=== PATIENT | male | born 1995 | race Caucasian/White ===

== ENCOUNTER 2024-08-17 19:34 | Emergency (ER) | payer SELFPAY ==
--- NOTE | ~2024-08-17 | XR_ITS ---
CLINICAL HISTORY: FB sensation 2 views soft tissue neck Comparison: None Findings No acute fractures or dislocation. Normal epiglottis. No prevertebral soft tissue swelling. No radiopaque foreign body. IMPRESSION: No acute findings This document has been electronically signed by: Mee Lemon MD on 08/17/2024 22:18:22
[2024-08-17 20:33] VITALS: BP 125/78; PULSE 79; RESP 16; TEMP 36.8; O2SAT 97
--- NOTE | 2024-08-17 20:34 | ED.CHESTPAIN ---
HPI - Chest Pain General Chief Complaint: Skin/Abscess/Foreign Body Stated Complaint: ? bone stuck in throat Time Seen by Provider: 08/17/24 21:48 Source: patient Mode of arrival: ambulatory Limitations: no limitations History of Present Illness ED Provider: GRAYSON HPI narrative: 28 yo male with no sig PMH here after eating a reheated piece of chicken he thought when he swallowed maybe there was a bone and it was stuck in his throat afterwards it hurt and now when he swallows it hurts. No bleeding reported. He is also asking for his thyroid to be checked because he is sleeping more. He denies any change in voice, fever. MD complaint: other (FB?) Onset (ago): day(s) (1) Prior episodes: No Onset: after eating Pain location: other (near his [place]) Pain radiation: none Severity: mild Quality: sharp Relieving factors: nothing Exacerbating factors: eating Context: other Treatment prior to arrival: none Related Data Allergies Allergy/AdvReac Type Severity Reaction Status Date / Time No Known Allergies Allergy Verified 08/17/24 20:35 Review of Systems Review of Systems: Constitutional : No Fever, No Chills, No Fatigue ENT/Mouth : pos sore throat, No Rhinorrhea Eyes: No Eye Pain, No Swelling, No Redness Cardiovascular : No Chest Pain, No SOB, No Dyspnea on Exertion Respiratory : No Cough, No Sputum Gastrointestinal : No Nausea, No Vomiting, No Diarrhea, No abdominal Pain Genitourinary : No Dysuria, No Urinary Frequency, No Hematuria, Musculoskeletal : No joint pain, No Myalgias, No Joint Swelling Skin : No Skin Lesions, No rash Neuro : No Weakness, No Numbness, No Dizziness, no Headache All other systems reviewed and are negative REPLACED BY [facility] Past Medical History Attestation statement: The following information was validated with the patient. Medical History (Updated 08/18/24 @ 00:00 by Jaswinder Romano) No pertinent past medical history Social History Social History (Updated 08/17/24 @ 22:40 by Esme Sanders DO) Patient Tobacco Use Status: Never used Tobacco Physical Exam Vital Signs: Vital Signs: Last Vital Signs Temp 98.4 F 08/17/24 22:47 Pulse 78 08/17/24 22:47 Resp 20 08/17/24 22:47 BP 118/81 08/17/24 22:47 Pulse Ox 98 08/17/24 22:47 O2 Del Method Room Air 08/17/24 22:47 BMI result Body Mass Index 30.0 Appearance: Alert. Oriented X3. No acute distress. Eyes: Pupils equal, round and reactive to light. ENT: Pharynx normal. Neck: Normal inspection. Neck supple. CVS: Normal heart rate and rhythm. Pulses normal. Respiratory: No respiratory distress. Breath sounds normal. Abdomen: Soft and non-tender. Skin: Skin warm and dry. Normal skin color. Normal skin turgor. Extremities: No lower extremity edema. No calf ttp Neuro: Oriented X 3. No motor deficit. No sensory deficit. CN2-12 intact Course Course Course Narrative: RME: 28 yold male presents to the ED for possible chicken stuck in throat. patient was eating meat in 30 minutes later and felt like it got stuck in his throat. Patient denies any drooling or change in voice. Patient denies any neck swelling chest pain or shortness of breath. Patient appears stable. Patient is speaking in clear sentences. Negative for any drooling. Patient will be brought to the [facility] immediately Medications Administered Discontinued Medications Generic Name Dose Route Start Last Admin Trade Name Freq PRN Reason Stop Dose Admin Lidocaine HCl 15 ml 08/17/24 22:05 08/17/24 22:14 Lidocaine Hcl Viscous 2 % 15 Ml Solution MUCOUS MEM 08/17/24 22:06 15 ml ONCE ONE Administration Medical Decision Making Medical Decision Making [facility] Narrative: 28 yo male with no signs of resp distress, no voice change, no reported GIB here with throat pain after eating hard piece of chicken, no signs of food bolus impaction at this time xray ordered for FB but I suspect that this is more abrasion from eating hard piece of chicken. He is also asking for thyroid test - can follow up with results after discharge Differential Diagnosis Differential Diagnoses: The differential diagnosis associated with the presentation includes FB, abrasion Lab Data [facility] Lab Attestation statement: I reviewed the patient's lab results. Labs: Lab Results 08/17/24 Range/Units 23:07 TSH 2.50 (0.32-4.0) uIU/mL Independent Interpretation I performed an independent interpretation of an: Plain X-Ray (no FB) Radiology Impression Discussion of test interpretation with radiology: I have reviewed the radiologist's reading. Prescription Management I considered prescription management with: Other Discharge Plan Discharge Clinical Impression: Abrasion of throat Patient Disposition: Home, Self-Care Instructions: Abrasion (ED) Additional Instructions: soft diet liquids no crunchy foods for the next 48 hours return for fevers, worsening pain, or any other concerns can take tylenol as needed for pain if thyroid abnormal we will call you this is an abrasion in the throat, xray shows no FB Interventions: ED Discharge Assessment Last Done: 08/17/24 22:47 Discharge Date/Time: 08/17/24 23:12 Print Language: Lebanese
[2024-08-17] MEDS: Lidocaine HCl Viscous 2 % 15 ML SOLUTION MUCOUS MEM (22:14)
[2024-08-17 22:29] VITALS: BP 118/81; PULSE 78; RESP 20; TEMP 36.9; O2SAT 98
[2024-08-17 22:47] VITALS: BP 118/81; PULSE 78; RESP 20; TEMP 36.9; O2SAT 98
--- NOTE | 2024-08-17 23:10 | MHC.EDTECH ---
Patient brought into triage area,lab drawn and sent to lab.
--- NOTE | 2024-08-17 23:10 | PC.NURSE ---
pt had previously been discharged prior to getting bloodwork drawn. dr lange called pt to come back for lab pt placed back on tracker at that time. recharger aware pt okay to leave after blood work per
== END 2024-08-17 23:12 | disposition home or self-care (01) ==
PROVIDERS: Emergency Provider Emergency Medicine
DX: S10.11XA Abrasion of throat, initial encounter (principal); W44.F3XA Food entering into or through a natural orifice, initial encounter; Y93.89 Activity, other specified; Y92.9 Unspecified place or not applicable; Y99.9 Unspecified external cause status
CPT/HCPCS: 36415; 70360; 84443; 99283

== ENCOUNTER → 2024-08-17 21:38 | Outpatient (BNV) | payer SELFPAY | PROVIDERS: Emergency Provider Emergency Medicine; Visit Provider Specialist | DX: R09.A0 Foreign body sensation, unspecified (principal) | CPT/HCPCS: 70360 ==

== ENCOUNTER 2025-06-05 23:06 | Emergency (ER) | payer SELFPAY ==
--- NOTE | ~2025-06-05 | XR_ITS ---
CLINICAL HISTORY: cough sob 2 view chest x-ray Comparison: None provided Findings: No consolidation or effusion. Normal size heart. No acute fracture. IMPRESSION: 1. No acute findings. This document has been electronically signed by: Christiano Connors MD on 06/06/2025 00:02:10
[2025-06-05 23:11] VITALS: BP 137/83; PULSE 91; RESP 18; TEMP 36.6; O2SAT 97; BMI 33.1
[2025-06-05 23:42] LABS: IDNOW Serial# 08D9AD1C; Strep A Nucleic Acid Negative (Negative)
[2025-06-05 23:47] LABS: COVID-19 Test Negative (Negative); IDNOW Serial# 55D5AD1C; IDNOW Serial# 58CA691E; Influenza B2 Negative (Negative)
--- NOTE | 2025-06-05 23:53 | ED_ITS ---
HPI - URI/Sore Throat General Chief Complaint: Upper Respiratory Symptoms Stated Complaint: SOB Time Seen by Provider: 06/05/25 23:42 History of Present Illness HPI Narrative: Patient is a 29-year-old male presents today with having 4 day history of coughing congestion upper respiratory symptoms. Sore throat. Patient has tried [id number] medication including DayQuil Mucinex with only moderate relief. Came to the ED. Related Data Previous Rx's ?Medication ?Instructions ?Recorded azithromycin 250 mg tablet See Rx Instructions PO .COM PLEX 06/06/25 upper resp infection #6 tabs Allergies Allergy/AdvReac Type Severity Reaction Status Date / Time No Known Allergies Allergy Verified 06/05/25 23:14 Review of Systems Review of Systems: Positive coughing congestion upper respiratory symptoms Yes all other systems are reviewed and are negative [facility] Past Medical History Attestation statement: The following information was validated with the patient. Medical History No pertinent past medical history Social History Social History Patient Tobacco Use Status: Never used Tobacco Advance Directives: No Advance Directives Information Provided: Yes Do you have a plan to hurt others: No Plan Physical Exam Exam: Exam: Appearance: Alert. Oriented X3. No acute distress. Eyes: Pupils equal, round and reactive to light. ENT: Pharynx normal. Neck: Normal inspection. Neck supple. No lymph nodes noted. No crepitus CVS: Normal heart rate and rhythm. Pulses normal. Normal S1 and S2 Respiratory: No respiratory distress. Breath sounds normal. No Wheezing. No rales Abdomen: Soft and nontender. No rigidity. No distention. good BS x4 Skin: Skin warm and dry. Normal skin color. Normal skin turgor. Extremities: No lower extremity edema. Neurovascular intact to all extremities. No Lacerations. No Rash Neuro: Oriented X 3. No motor deficit. No sensory deficit. Moving all extermities. No slurred speech Vital Signs: Vital Signs: Last Vital Signs Temp 97.9 F 06/05/25 23:11 Pulse 91 06/05/25 23:11 Resp 18 06/05/25 23:11 BP 137/83 06/05/25 23:11 Pulse Ox 97 06/05/25 23:11 O2 Del Method Room Air 06/05/25 23:11 BMI result Body Mass Index 33.1 Medical Decision Making Medical Decision Making [facility] Narrative: Positive coughing congestion upper respiratory symptoms. Patient's COVID flu RSV were all negative. Chest x-ray by my interpretation showed no pneumonia no pneumothorax. Patient's O2 sats 97% on room air lungs are clear. Likely bronchitis will discharge patient home in stable condition. Differential Diagnosis Differential Diagnoses: The differential diagnosis associated with the presentation includes Admission/Observation Consideration of admission/observation: Escalation of care including admission/observation considered Lab Data [facility] Lab Attestation statement: I reviewed the patient's lab results. Labs: Lab Results 06/05/25 Range/Units 23:23 COVID-19 (DESIREE) Negative (Negative) COVID-19 Clin Com See Note Influenza Type A (GILMAR) Negative (Negative) Influenza Type B (GILMAR) Negative (Negative) Influenza A & B Note See Note S. pyogenes GrpA GILMAR Negative (Negative) Independent Interpretation I performed an independent interpretation of an: Plain X-Ray (Chest x-ray negative) Radiology Impression Discussion of test interpretation with radiology: I have reviewed the radiologist's reading. Social Determinants Patient?s care significantly limited by Social Determinants of Health including: Problems related to primary support group Discharge Plan Discharge Clinical Impression: Upper respiratory infection Patient Disposition: Home, Self-Care Instructions: Acute Bronchitis (ED) Prescriptions: New azithromycin 250 mg tablet See Rx Instructions .ROUTE .COMPLEX Qty: 6 0RF Rx Instructions: take 500 mg today (day 1), then 250 mg for 4 days (days 2-5) Referrals: Physician,Unknown J [Primary Care Provider, Medical] - 06/09/25 Print Language: Belarusian
[2025-06-06] VITALS: BP 126/88; PULSE 72; RESP 16; TEMP 36.6; O2SAT 98
--- OUTSIDE RECORDS SUMMARY | 2025-06-06 00:04 | XMS_ITS ---
Author Name [facility] Organization Unknown Encounters Encounter Type Encounter Reason Primary Diagnosis Location Date Emergency Unspecified injury of unspecified lower leg, initial encounter Unspecified injury of unspecified lower leg, initial encounter [facility] 12/12/2023 Care Team Organization Name Specialty Phone Email Start Date End [facility] 06/26/2024 [employer] 12/13/2023 10/28/2024 [facility] 12/12/2023
--- OUTSIDE RECORDS SUMMARY | 2025-06-06 00:04 | XMS_ITS | Clinical Summary ---
Author Organization [facility] Address [address] [place] [address] Care Team Providers Care Medical Office Technician Name Role Phone Unknown Primary Care Provider [phone] Allergies No known active allergies Medications naproxen (NAPROSYN) 500 MG tablet Take 1 tablet (500 mg total) by mouth 2 (two) times a day as needed for mild pain (pain). Take with food 14 tablet 12/12/2023 Active Social History Tobacco Use Types Packs/Day Years Used Date Smoking Tobacco: Never Assessed Sex and Gender Information Value Date Recorded Sex Assigned at Male 12/12/2023 12:22 PM EDT Legal Sex Male 11:46 AM EDT Gender Identity Male 12/12/2023 12:22 PM EDT Sexual Orientation Heterosexual (straight) 12/11 12:22 PM EDT Last Filed Vital Signs Vital Sign Reading Time Taken Comments Blood Pressure 112/72 12/12/2023 12:04 PM EDT Pulse 97 12/12/2023 12:04 PM EDT Temperature 36.1 C (97 F) 12/12/2023 12:04 PM EDT Respiratory Rate 18 12/12/2023 12:04 PM EDT Oxygen Saturation 99% 12/12/2023 12:04 PM EDT Inhaled Oxygen Concentration - - Weight 95.3 kg (210 lb) 12/12/2023 12:04 PM EDT Height 180.3 cm (5' 11 ) 12/12/2023 12:04 PM EDT Body Mass Index 29.29 12/12/2023 12:04 PM EDT Plan of Treatment Health Maintenance Due Date Last Done Comments Hepatitis C Virus Screening 1994 HIV Screening 2007 DTaP/Tdap/Td Vaccines (1 - Tdap) 2013 Hepatitis B Vaccines (1 of 3 - 19+ 3-dose series) 2013 Influenza Vaccine 03/12/2025 06/24/2019 COVID-19 Vaccine (3 - 2024-2 6 season) 2025 11/22/2021, 09/27/2021 HPV Vaccines (No Doses Required) Completed Pneumococcal Vaccine: Pediatric (0-5 Years) and At-Risk Patients (6 to 49 Years) Aged Out No longer eligible b ased on patient's age to complete this topic Care Teams Medical Office Technician Relationship Specialty Start Date End Date Unknown Unknow Provider Address PCP - General 12/12/23
[2025-06-06 00:42] VITALS: O2SAT 98
[2025-06-06 00:43] VITALS: BP 126/88; PULSE 72; RESP 16; TEMP 36.6; O2SAT 98
== END 2025-06-06 00:43 | disposition home or self-care (01) ==
PROVIDERS: Emergency Provider Emergency Medicine Emergency Medical Services
DX: J06.9 Acute upper respiratory infection, unspecified (principal); J20.9 Acute bronchitis, unspecified
CPT/HCPCS: 71046; 87502; 87635; 87651; 99283; 99284

== ENCOUNTER → 2025-06-05 23:35 | Outpatient (BNV) | payer SELFPAY | PROVIDERS: Emergency Provider Emergency Medicine Emergency Medical Services; Visit Provider Radiology Diagnostic Radiology | DX: R05.9 Cough, unspecified (principal); R06.02 Shortness of breath | CPT/HCPCS: 71046 ==